=== PATIENT | male | born 1985 | race Caucasian/White ===

== ENCOUNTER 2017-05-21 20:48 | Emergency (ER) | payer SELFPAY ==
[~2017-05-21] VITALS: Ht 182.9 cm; Wt 97.5 kg
[2017-05-21 20:49] VITALS: BP 116/74
--- NOTE | 2017-05-21 20:54 | ER Report ---
History and Physical Time Seen By MD: 20:48 Hx. of Stated Complaint: [employer] REPORTS THAT PT INTOXICATED. NEEDS CLEARANCE FOR PENITENTIARY. HPI/ROS CHIEF COMPLAINT: [facility] clearance HISTORY OF PRESENT ILLNESS: 31-year-old male brought in by police for skilled nursing clearance. Patient voices no complaints. He voices no past medical history. There is an obvious abrasion to his right knee. With blood staining his pants. Patient appears with slurred speech and heavy odor of EtOH on his breath consistent with alcohol intoxication. Patient states his tetanus shot is up-to- date. REVIEW OF SYSTEMS: Respiratory: No cough, no dyspnea. Cardiovascular: No chest pain, no palpitations. Gastrointestinal: No vomiting, no abdominal pain. Musculoskeletal: No back pain. Allergies: Coded Allergies: No Known Drug Allergies (Unverified , 05/21/17) Home Meds No Active Prescriptions or Reported Meds Reviewed Nurses Notes: Yes Old Medical Records Reviewed: Yes Constitutional Vital Sign - Last 24 Hours 05/21/17 20:49 Temp 98.4 Pulse 79 Resp 14 B/P (MAP) 116/74 Pulse Ox 95 O2 Delivery Room Air Physical Exam General Appearance: The patient is alert, has no immediate need for airway protection and no current signs of toxicity.. Palpation of the head and neck reveal no tenderness or trauma HEENT: Pupils equal and round no injection. TMs normal, oropharynx without dental trauma Respiratory: Chest is non tender, lungs are clear to auscultation. No chest wall tenderness Cardiac: regular rate and rhythm Gastrointestinal: Abdomen is soft and non tender, no masses, bowel sounds normal. Musculoskeletal: Neck: Neck is supple and non tender. No tenderness in the midline Extremities have full range of motion and are non tender., No evidence of trauma except for superficial abrasion to the right knee Skin: No rashes or lesions. DIFFERENTIAL DIAGNOSIS: After history and physical exam differential diagnosis was considered for alcohol intoxication, skilled nursing clearance, polysubstance abuse, knee abrasion, knee contusion Medical Decision Making ED Course/Re-evaluation ED Course Patient admitted to an examination room. H&P was done. The differential diagnoses was considered. On clinical examination, patient appears grossly alcohol intoxicated. Palpation of the head and neck reveals no trauma or injuries. Patient voices no complaints. He is medically cleared for skilled nursing admission. Decision to Disposition Date: May 21, 2017 Decision to Disposition Time: 20:53 Depart Departure Latest Vital Signs Vital Signs Date Time Temp Pulse Resp B/P (MAP) Pulse Ox O2 Delivery O2 Flow Rate FiO2 05/21/17 20:49 98.4 79 14 116/74 95 Room Air Impression: Primary Impression: Medical clearance for incarceration Additional Impressions: Alcohol intoxication Abrasion, right knee, initial encounter Condition: Improved Disposition: HOME OR SELF-CARE New Scripts No Active Prescriptions or Reported Meds Patient Instructions: Acute Wound Care (ED), Alcohol Intoxication (ED) Additional Instructions: Patient medically cleared for skilled nursing admission Problem Qualifiers Additional Impressions: Alcohol intoxication Complication of substance-induced condition: uncomplicated Qualified Codes: F10.920 - Alcohol use, unspecified with intoxication, uncomplicated GERRY FRANK DO May 21, 2017 20:54
== END 2017-05-21 21:00 | disposition home or self-care (01) ==
LOC: ER 20:53
DX: F10.920 Alcohol use, unspecified with intoxication, uncomplicated (principal); S80.211A Abrasion, right knee, initial encounter
CPT/HCPCS: 99281